=== PATIENT | male | born 1955 | race Caucasian/White ===

== ENCOUNTER → 2024-02-09 08:50 | Outpatient (REF) | payer MEDICARE, SELFPAY ==
[2024-02-09 10:14] LABS: Hematocrit 35.8 % (39.0-52.0); Hemoglobin 11.3 g/dL (13.0-18.0); Mean Corp Hgb Conc. 31.6 g/dL (33.0-37.0); Mean Corpuscular Hgb 26.1 pg (27.0-31.0); Mean Corpuscular Volume 82.7 fL (80.0-94.0); Mean Platelet Volume 9.3 fL (7.4-10.4); Platelet Count 266 10^3/uL (130-400); Red Blood Cell Count 4.33 10^6/uL (4.70-6.10); Red Cell Dist. Width 18.3 % (11.5-14.5); White Blood Cell Count 15.5 10^3/uL (4.8-10.8)
== END ==
LOC: SDSPAT 08:50
PROVIDERS: ATTENDING PHYSICIAN Otolaryngology; FAMILY PHYSICIAN Family Medicine
DX: Z01.818 Encounter for other preprocedural examination (principal)
CPT/HCPCS: 36415; 85027; 93005

== ENCOUNTER 2024-02-23 06:19 | Day surgery (SDC) | payer MEDICARE, SELFPAY ==
[2024-02-09 12:49] VITALS: BMI 35.4
--- NOTE | 2024-02-16 12:10 | PTCARENOTE ---
Patients 02/08 [id number]- message left on machine for Magdy khan
[2024-02-23 09:14] VITALS: BMI 35.4
[2024-02-23 09:14] LABS: Glucose - Point of Care 177 mg/dl (70-99)
[2024-02-23 09:15] VITALS: BP 145/78
[2024-02-23 11:05] VITALS: BP 145/78; BP 151/83
[2024-02-23 11:13] LABS: Glucose - Point of Care 168 mg/dl (70-99)
[2024-02-23 11:15] VITALS: BP 151/86
[2024-02-23 11:28] VITALS: BP 157/84
[2024-02-23 11:46] VITALS: BP 158/87
[2024-02-23 12:02] VITALS: BP 133/73
== END 2024-02-23 12:20 | disposition home or self-care (01) ==
LOC: SDS 06:19
PROVIDERS: ATTENDING PHYSICIAN Otolaryngology
DX: H65.91 Unspecified nonsuppurative otitis media, right ear (principal)
CPT/HCPCS: 69436; 82962

== ENCOUNTER → 2024-04-16 06:25 | Day surgery (SDC) | payer MEDICARE, SELFPAY ==
[2024-04-16 07:10] VITALS: BMI 36.5
[2024-04-16 07:11] VITALS: BP 145/76
[2024-04-16] MEDS: ALCAINE 0.5% EYE DROPS 1 DROP OPHTH (07:11)
[2024-04-16] MEDS: NEO-SYNEPHRINE 2.5% OPH SOL. 1 DROP OPHTH (07:12)
[2024-04-16] MEDS: MYDRIACYL 1 DROP OPHTH (07:12)
[2024-04-16] MEDS: ACUVAIL 10 DROPS OPHTH (07:12)
[2024-04-16] MEDS: CYCLOGYL 1% EYE DROPS 1 DROP OPHTH (07:12)
[2024-04-16] MEDS: PRED FORTE 1% EYE DROPS 1 DROP OPHTH (07:12)
[2024-04-16] MEDS: POLYTRIM OPHTHALMIC SOLUTION 1 DROP OPHTH (07:12)
[2024-04-16 07:19] LABS: Glucose - Point of Care 110 mg/dl (70-99)
[2024-04-16] MEDS: AKTEN OPHTHALMIC GEL 1 ML OPHTH (07:55)
[2024-04-16 08:25] VITALS: BP 138/67
[2024-04-16 08:40] VITALS: BP 126/70
[2024-04-16 08:46] VITALS: BP 140/68
== END ==
LOC: SDS 06:25
PROVIDERS: ATTENDING PHYSICIAN Ophthalmology
DX: H25.811 Combined forms of age-related cataract, right eye (principal)
CPT/HCPCS: 66984; 82962; V2632